=== PATIENT | male | born 1950 | race Caucasian/White ===

== ENCOUNTER 2019-02-18 09:13 | Emergency (ER) | payer OTHER ==
[2019-02-18] MEDS ORDERED: Metoclopramide 10 MG/2 ML SDV IVPUSH ONE (09:46)
[2019-02-18] MEDS ORDERED: Meclizine 12.5 MG Tab PO ONE ×2 (09:46→16:44)
[2019-02-18] MEDS ORDERED: LORazepam 2 MG/ML SDV IVPUSH ONE (09:46)
--- NOTE | 2019-02-18 09:54 | EDM.PDOC ---
ED HPI GENERAL MEDICAL PROBLEM - General Chief Complaint: Neuro Symptoms/Deficits Stated Complaint: DIZZINESS, COORDINATION ISSUES Time Seen by Provider: 02/18/19 09:32 Source of Information: Reports: Patient History Limitations: Reports: No Limitations - History of Present Illness INITIAL COMMENTS - FREE TEXT/NARRATIVE: 68-year-old male presents to the ED with a history of vertigo for the last 3 days starting February 15. He is fine if he is completely at rest. Noted that he is listing slightly to the left side with walking. Reports no falls or need for a walking aid. No nausea vomiting. No recent falls or closed head injuries. No recent changes to any of his medications. He states currently is not taking any medication. No increased humming,ringing or buzzing in his ears. He has had a bout of vertigo once in the past about 2 years ago and treated in [facility]. End up having a CT scan of his brain at that time with no positive findings. Was not given any medicine and symptoms settle down a couple of days after he left the ED. reports the intermittent vertigo is about the same as it was on Monday no worse or better. He reports he drove here and did not have any problems operating his motor vehicle. Onset: Sudden Onset Date: 02/15/19 Duration: Day(s):, Constant Location: Reports: Other (Vertigo symptoms with impaired balance with walking.) Quality: Reports: Other Severity: Moderate (Vertigo.) Improves with: Reports: Rest Worsens with: Reports: Movement Context: Denies: Activity (Of head or neck), Exercise, Lifting, Sick Contact, Trauma, Other Associated Symptoms: Reports: Headaches. Denies: Confusion, Chest Pain, Cough, cough w sputum, Fever/Chills, Loss of Appetite, Malaise, Nausea/Vomiting, Rash, Shortness of Breath, Syncope Treatments [employer]: Reports: Other (see below) (None.) - Related Data Allergies Allergy/AdvReac Type Severity Reaction Status Date / Time No Known Allergies Allergy Verified 02/18/19 09:33 Home Meds: Home Meds Amoxicillin/Potassium Clav [Augmentin 500-125 Tablet] 1 each PO BID #20 tablet 02/18/19 [Rx] Aspirin [Halfprin] 81 mg PO DAILY 02/18/19 [History] Meclizine [Antivert] 25 mg PO Q8H 5 Days #15 tab 02/18/19 [Rx] Past Medical History HEENT History: Reports: Impaired Vision Other HEENT History: wears corrective lenses Cardiovascular History: Reports: Hypertension (Told that his blood pressures been borderline high but is not on medication) Musculoskeletal History: Reports: Other (See Below) (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 Mild low back and neck stiffness and soreness) Neurological History: Reports: Vertigo Endocrine/Metabolic History: Reports: Obesity/BMI 30+ - Past Surgical History Musculoskeletal Surgical History: Reports: Hip Replacement, Other (See Below) Other Musculoskeletal Surgeries/Procedures:: x2 Social & Family History - Tobacco Use Smoking Status *Q: Current Every Day Smoker Years of Tobacco use: 30 Packs/Tins Daily: 2 - Caffeine Use Caffeine Use: Reports: Coffee - Recreational Drug Use Recreational Drug Use: No - Living Situation & Occupation Living situation: Reports: ED ROS GENERAL - Review of Systems Review Of Systems: See Below Constitutional: Reports: Malaise, Fatigue. Denies: Fever, Chills HEENT: Reports: No Symptoms, Other (Has not appreciated any change in his visual ) Respiratory: Reports: No Symptoms ( field.) Cardiovascular: Reports: Blood Pressure Problem Endocrine: Reports: Fatigue GI/Abdominal: Reports: No Symptoms : Reports: Frequency, Other Musculoskeletal: Reports: Neck Pain, Back Pain (Nocturia 1 or 2) Skin: Reports: No Symptoms (Vocational.) Neurological: Reports: Dizziness, Difficulty Walking (Vertigo symptoms especially with walking he is listing slightly to the left side.), Gait Disturbance. Denies: Weakness ( Mild.), Change in Speech Psychiatric: Reports: No Symptoms (Listing a little bit to the left side when he walks) Hematologic/Lymphatic: Reports: No Symptoms Immunologic: Reports: No Symptoms ED EXAM, DIZZINESS - Physical Exam Exam: See Below Exam Limited By: No Limitations General Appearance: Alert, WD/WN, No Apparent Distress Eye Exam: Bilateral Eye: Nystagmus (It is nonsustained on right lateral gaze but he sustained on left lateral gaze.) Nystagmus: worsens with head to L, reproducible, reversible Ears: Normal TMs Throat/Mouth: Normal Inspection, Normal Lips, Normal Teeth, Normal Oropharynx, Other Head Exam: Atraumatic, Normocephalic (Uvula is in the midline) Vertigo: worsens with head to L Neck: Normal Inspection, Supple, Non-Tender, Full Range of Motion. No: Carotid Bruit, Lymphadenopathy (L), Lymphadenopathy (R) Respiratory/Chest: No Respiratory Distress, Lungs Clear, Normal Breath Sounds, No Accessory Muscle Use, Chest Non-Tender Cardiovascular: Normal Peripheral Pulses, Regular Rate, Rhythm, No Edema, No Gallop, No Murmur, No Rub GI/Abdominal: Normal Bowel Sounds, Soft, Non-Tender, No Organomegaly, No Abnormal Bruit, No Mass, Pelvis Stable, Other (Abdominal girth limits ability to palpate solid organs.) Neurological: Alert, Normal Mood/Affect, Normal Dorsiflexion, CN II-XII Intact, Normal Plantar Flexion, Normal Reflexes, No Motor/Sensory Deficits, Oriented x 3 , Other (Normal heel to kirkpatrick. No pronator drift.). No: Abnormal Finger to Nose DTR: 1+: Bicep (R), Bicep (L), Patella (R), Patella (L) Extremities: Normal Inspection, Normal Range of Motion, Non-Tender, Other Psychiatric: Normal Affect (As he reports previous total hip replacements bilaterally), Normal Mood Skin Exam: Warm, Dry, Intact, Normal Color, No Rash EKG INTERPRETATION EKG Date: 02/18/19 Time: 10:05 Rhythm: NSR Rate (Beats/Min): 62 [place]: LAD-Left [place] Deviation (-43 consider left anterior fascicular block pattern) P-Wave: Present (P-wave is inverted in V1.) QRS: Other (There is near Q-wave in lead 3 and aVF consider old inferior wall myocardial infarction. Initial poor R-wave progression V1 to V3 but may be lead placement.) ST-T: Other (T-wave flattening in aVF. Nonspecific finding.) QT: Normal EKG Interpretation Comments: Abnormal ECG Course - Vital Signs Last Recorded V/S: Last Vital Signs Temp 36.3 C 02/18/19 09:26 Pulse 63 02/18/19 09:26 Resp 18 02/18/19 09:26 BP 169/88 H 02/18/19 09:26 Pulse Ox 96 02/18/19 09:26 - Orders/Labs/Meds Orders: Active Orders 24 hr Category Date Time Status EKG Documentation Completion [RC] STAT Care 02/18/19 09:47 Active Labs: Laboratory Tests 02/18/19 02/18/19 02/18/19 Range/Units 09:32 09:49 09:49 WBC 6.58 (4.23-9.07) K/mm3 RBC 5.47 (4.63-6.08) M/mm3 Hgb 16.9 (13.7-17.5) gm/L Hct 50.9 (40.1-51.0) % MCV 93.1 H (79.0-92.2) fl MCH 30.9 (25.7-32.2) pg MCHC 33.2 (32.2-35.5) g/dl RDW Std Deviation 50.5 H (35.1-43.9) fL Plt Count 170 (163-337) K/mm3 MPV 11.2 (9.4-12.3) fl Neutrophils % (Manual) 70 H (40-60) % Band Neutrophils % 0 (0-10) % Lymphocytes % (Manual) 17 L (20-40) % Atypical Lymphs % 0 % Monocytes % (Manual) 8 (2-10) % Eosinophils % (Manual) 5 (0.8-7.0) % Basophils % (Manual) 0 L (0.2-1.2) Platelet Estimate Adequate RBC Morph Comment Normal Sodium 136 (136-145) mEq/L Potassium 4.6 (3.5-5.1) mEq/L Chloride 103 (98-107) mEq/L Carbon Dioxide 26 (21-32) mEq/L Anion Gap 11.6 (5-15) BUN 15 (7-18) mg/dL Creatinine 1.0 (0.7-1.3) mg/dL Est Cr Clr Drug Dosing 65.57 mL/min Estimated GFR (MDRD) > 60 (>60) mL/min BUN/Creatinine Ratio 15.0 (14-18) Glucose 174 H (80-115) mg/dL POC Glucose 164 H (80-115) mg/dL Hemoglobin A1c (4.50-6.20) % Calcium 9.5 (8.5-10.1) mg/dL Magnesium 2.1 (1.8-2.4) mg/dl Total Bilirubin 0.4 (0.2-1.0) mg/dL AST 16 (15-37) U/L ALT 28 (16-63) U/L Alkaline Phosphatase 76 (46-116) U/L C-Reactive Protein < 0.2 (<1.0) mg/dL Total Protein 6.3 L (6.4-8.2) g/dl Albumin 3.4 (3.4-5.0) g/dl Globulin 2.9 gm/dL Albumin/Globulin Ratio 1.2 (1-2) TSH 3rd Generation 1.589 (0.358-3.74) uIU/mL 02/18/19 Range/Units 09:49 WBC (4.23-9.07) K/mm3 RBC (4.63-6.08) M/mm3 Hgb (13.7-17.5) gm/L Hct (40.1-51.0) % MCV (79.0-92.2) fl MCH (25.7-32.2) pg MCHC (32.2-35.5) g/dl RDW Std Deviation (35.1-43.9) fL Plt Count (163-337) K/mm3 MPV (9.4-12.3) fl Neutrophils % (Manual) (40-60) % Band Neutrophils % (0-10) % Lymphocytes % (Manual) (20-40) % Atypical Lymphs % % Monocytes % (Manual) (2-10) % Eosinophils % (Manual) (0.8-7.0) % Basophils % (Manual) (0.2-1.2) Platelet Estimate RBC Morph Comment Sodium (136-145) mEq/L Potassium (3.5-5.1) mEq/L Chloride (98-107) mEq/L Carbon Dioxide (21-32) mEq/L Anion Gap (5-15) BUN (7-18) mg/dL Creatinine (0.7-1.3) mg/dL Est Cr Clr Drug Dosing mL/min Estimated GFR (MDRD) (>60) mL/min BUN/Creatinine Ratio (14-18) Glucose (80-115) mg/dL POC Glucose (80-115) mg/dL Hemoglobin A1c 6.10 (4.50-6.20) % Calcium (8.5-10.1) mg/dL Magnesium (1.8-2.4) mg/dl Total Bilirubin (0.2-1.0) mg/dL AST (15-37) U/L ALT (16-63) U/L Alkaline Phosphatase (46-116) U/L C-Reactive Protein (<1.0) mg/dL Total Protein (6.4-8.2) g/dl Albumin (3.4-5.0) g/dl Globulin gm/dL Albumin/Globulin Ratio (1-2) TSH 3rd Generation (0.358-3.74) uIU/mL Meds: Medications Discontinued Medications Generic Name Dose Route Start Last Admin Trade Name Madhav PRN Reason Stop Dose Admin Sodium Chloride 1,000 mls @ 150 mls/hr 02/18/19 10:00 02/18/19 09:56 Normal Saline IV 150 mls/hr ASDIRECTED JAYA Administration Lorazepam 0.5 mg 02/18/19 09:46 02/18/19 09:56 Ativan IVPUSH 02/18/19 09:47 0.5 mg ONETIME ONE Administration Meclizine HCl 25 mg 02/18/19 09:46 02/18/19 09:56 Antivert PO 02/18/19 09:47 25 mg ONETIME ONE Administration Meclizine HCl 25 mg 02/18/19 16:44 02/18/19 16:50 Antivert PO 02/18/19 16:45 25 mg ONETIME ONE Administration Metoclopramide HCl 10 mg 02/18/19 09:46 02/18/19 09:58 Reglan IVPUSH 02/18/19 09:47 10 mg ONETIME ONE Administration - Radiology Interpretation Free Text/Narrative:: 68-year-old male presents to the ED with a 3 day history of vertigo upon movement. If he lies still he has no symptoms. No associated nausea vomiting. No recent falls or closed head injuries. No recent upper respiratory tract infections or problems with allergies in the last month. Examination reveals sustained nystagmus on left lateral gaze. Cranial nerves II-12 are otherwise intact. Heart is sinus no murmurs identified blood pressure is mildly elevated systolically. Heart is sinus on examination with no murmurs. Neuro exam is completely normal. Plan IV normal saline at 150 mils per hour. Routine labs will be performed. I will give him Reglan 10 mg IV and Ativan 0.5 mg IV with a plan to review him in about an hour and a quarter after Mensa been given to see if he still has significant ataxia with gait. - Re-Assessments/Exams Free Text/Narrative Re-Assessment/Exam: 02/18/19 11:01 Labs reveal a normal white count at 6.58 with 70% neutrophils and no band cells reported. Hemoglobin is 16.9 with hematocrit of 50.9 indicating some degree of hemoconcentration. Only elevated at 93.1. White count is 170,000. Sodium 136 with a potassium of 4.6. Chloride 103 with a bicarbonate of 26. Anion gap is 11.6. BUN is 15 with a creatinine of 1.0. GFR is greater than 60. Glucose 174 with bedside blood sugar at 164. Hemoglobin A1c however is 6.10. Calcium is 9.5 with a magnesium of 2.1. Liver function normal C-reactive protein is less than 0.2. Total protein 6.3 albumin fraction 3.4. Globulin 2.9. TSH is normal at 1.589 02/18/19 12:37 will get the patient up to see if his vertigo symptoms are improved. Delay in treatment due to trauma in the ED. 02/18/19 13:05 We did get him up to walk and he is still ataxic and he is listing to the left side. He has to walk with a cane in his gait is wide-based. Her from going to CT his brain particularly looking for any infarction in the cerebellum. 02/18/19 14:39 CT of the brain is normal appearance with no evidence of cerebellar ischemic change. He definitely has significant difficulty walking with listing to the left side. Concern is still for left-sided cerebellar infarct. There is an opening in MRI and therefore I will have him seen with MRI of the brain to rule out an ischemic infarct in the cerebellum. 02/18/19 16:26 MRI of the brain is been completed. It goes along with both basal cisterns and sulci over the convexities appear within normal limits for the patient's age. Diffuse. Thickening is seen within the ethmoid and maxillary sinuses. Retention cyst is noted within the left sphenoid sinus. No abnormal signal seen within the brain parenchyma. No midline shift or mass effect is seen. Normal signal void is seen within the major cerebral arteries within the skull base. No acute diffusion abnormalities are appreciated. Assessment is chronic appearing sinus findings. No acute abnormalities appreciated on MRI of the brain. Patient so advised. Therefore appears that he has paroxysmal benign positional vertigo. Is atypical from the point of view that he doesn't really expense any spinning sensation more just waving and off kilter. His MRI and CT both reveal chronic sinusitis involving the sphenoids, the ethmoids and maxillary sinuses with a 2.0 centimeter tension polyp in the left maxillary sinus. Because of this and nights unclear whether or not this may be determining to a labyrinthitis I'm going to treat him with Augmentin 500 mg/125 mg twice a day for the next 10 days as well. He will also be placed on Antivert 25 mg every 8 hours with the next dose to be taken at midnight. We'll give him a 25 mg dose by mouth before he is discharged. Departure - Departure Time of Disposition: 16:26 Disposition: Home, Self-Care 01 Condition: Fair Clinical Impression: Benign paroxysmal positional vertigo of left ear, Chronic frontoethmoidal sinusitis - Discharge Information *PRESCRIPTION DRUG MONITORING PROGRAM REVIEWED*: Not Applicable *COPY OF PRESCRIPTION DRUG MONITORING REPORT IN PATIENT SAVANNAH: Not Applicable Prescriptions: Amoxicillin/Potassium Clav [Augmentin 500-125 Tablet] 1 each PO BID #20 tablet Meclizine [Antivert] 25 mg PO Q8H 5 Days #15 tab Instructions: Sinusitis, Adult Referrals: PCP,Unknown [Ordering Only Provider] - Forms: ED Department Discharge, ED Return to Work/School Form Additional Instructions: Evaluation in the emergency room today in regards to significant troubles walking over the last 3 days. Associated mild feeling of vertigo or sense of being off balance. No true spinning sensation and no associated nausea or vomiting. You do have nystagmus on left lateral gaze which means that the left labyrinth is not functioning normally. Treated initially with Reglan 10 mg and Ativan 0.5 mg to bring the vertigo under control but it did not seem to help very much. Lab work performed was all within normal limits. CT of the head was therefore performed and did not show any significant abnormalities other than sinusitis within the maxillary, ethmoid and sphenoid sinuses. There is a retention cyst noted within the left maxillary sinus measuring almost 2 cm. Changes are compatible with chronic sinusitis but sometimes sinusitis can contribute to problems with the balance mechanism. Decision made to perform MRI and rule out any chance for a stroke involving the cerebellum while you were in the ED. It revealed no signs of stroke causing current problems. The knee did reveal significant sinus disease. 4 decision made to treat you with Antivert 25 mg every 8 hours with the next tablet due at 5 PM today and then suggest midnight and then 8:00 in the morning. The midnight dose will be 1 hour early. Also will treat with antibiotics Augmentin 500 mg/125 mg twice daily for the next 10 days to clear up any sinus infection that may be contributing to current balance prongs. Just off work for the next 3 days or until vertigo settles completely. Follow-up with personal care physician if problems persist longer than 5 days. - My Orders Last 24 Hours: My Active Orders 02/18/19 09:47 EKG Documentation Completion [RC] STAT - Assessment/Plan Last 24 Hours: My Active Orders 02/18/19 09:47 EKG Documentation Completion [RC] STAT
[2019-02-18] MEDS ORDERED: Sodium Chloride 0.9% 1,000 ML IV SCH (10:00)
[2019-02-18 10:11] LABS: HEMOGLOBIN A1C 6.1 % (4.50-6.20)
--- NOTE | 2019-02-18 13:54 | CT ---
Head CT Technique: Multiple axial sections through the brain were obtained. Intravenous contrast was not utilized. Comparison: No prior intracranial imaging is identified. Findings: Ventricles along with basal cisterns and sulci over the convexities are within normal limits for the patient's age. No abnormal parenchymal densities are seen. No evidence of intracranial hemorrhage. No midline shift or mass effect is seen. Mild atherosclerotic calcification is seen within the carotid siphon. Retention cyst is noted within the left maxillary sinus measuring 2.0 cm. Mild areas of mucosal thickening are seen within the maxillary, ethmoid and sphenoid sinus. No air-fluid levels are seen within the paranasal sinuses or within the mastoid sinuses. No acute calvarial abnormality is seen. Impression: 1. Mild chronic appearing sinus findings. Atherosclerotic calcification within the carotid siphon. 2. No acute intracranial abnormality is identified. If further evaluation for stroke is needed, MRI could then be considered. Diagnostic code #2
--- NOTE | 2019-02-18 16:12 | MR ---
MRI brain Technique: T1 sagittal; T2, T2 FLAIR, gradient echo, T1 and diffusion axial; T2 gradient echo and T1-weighted coronal images were obtained. Comparison: Prior head CT study performed earlier on the same day (1:05 PM). Findings: Ventricles along with basal cisterns and sulci over the convexities appear within normal limits for the patient's age. Diffuse mucosal thickening is seen within the ethmoid and maxillary sinuses. Retention cyst is noted within the left sphenoid sinus. No abnormal signal is seen within the brain parenchyma. No midline shift or mass effect is seen. Normal signal void is seen within the major cerebral arteries within the skull base. No acute diffusion abnormalities are seen. Impression: 1. Chronic appearing sinus findings. 2. No acute abnormality is appreciated on MRI study of the brain. Diagnostic code #2
== END 2019-02-18 16:55 | disposition home or self-care (01) ==
LOC: JD.ED 09:13
DX: H81.12 Benign paroxysmal vertigo, left ear (principal); J32.8 Other chronic sinusitis; E66.9 Obesity, unspecified; F17.210 Nicotine dependence, cigarettes, uncomplicated
CPT/HCPCS: 36415; 70450; 70551; 80053; 82962; 83036; 83735; 84443; 85007; 85027; 86140; 93005; 96361; 96374; 96375; 99284; A9270; J2060; J2765; J7040; 93010